=== PATIENT | male | born 1995 | race Caucasian/White ===

== ENCOUNTER 2016-04-05 06:38 | Emergency (ER) | payer OTHER ==
[2016-04-05] MEDS ORDERED: HALOPERIDOL LACTATE 5 MG/ML VIAL IM ONE ×2 (07:26→07:28)
[2016-04-05 07:45] LABS: BASOPHILS % 0.4 (0.0-1.5); EOSINOPHILS % 6.8 % (0.0-6.8); LYMPHOCYTES # 2.5 # k/uL (0.6-4.0); MEAN CORPUSCULAR HEMOGLOBIN 29.4 pg (28.0-34.0); MONOCYTES # 0.5 # k/uL (0.0-0.9); MONOCYTES % 6.5 % (0.0-11.0); NEUTROPHILS # 3.6 # k/uL (1.4-7.7)
[2016-04-05 07:48] LABS: APPEARANCE,URINE Clear (CLEAR); COLOR,URINE Yellow (YELLOW); OCCULT BLOOD,URINE Negative (NEGATIVE); PH URINE 5.5 (5.0 - 8.0)
[2016-04-05 07:53] LABS: AMPHETAMINE NEGATIVE ng/mL (<1000); BARBITURATES NEGATIVE ng/mL (<300); CANNABINOIDS NEGATIVE ng/mL (<50); COCAINE NEGATIVE ng/mL (<150); METHAMPHETAMINE NEGATIVE ng/mL (<1000); METHYLENEDIOXYMETHAMPHETAMINE NEGATIVE ng/mL (<500)
[2016-04-05 08:04] LABS: eGFR (African) > 60; eGFR (Non-African) > 60
--- NOTE | 2016-04-05 09:50 | ED Physician Documentation ---
Psychological Disorders - HISTORIAN Historian: patient - HPI Stated Complaint: "Anxiety" Chief Complaint: Psychological Disorder Additional Information: chronic problem, feels overwhelmed, not suicidal or homicidal Onset: hours (8) Duration: other (exacerbation of chronic problem) Intent: other (wants to get well) Severity: moderate Situational Problems: Yes Related To: spouse, work, recent Further Comments: no - Associated Symptoms Symptoms: agitated Suicidal: other (not suicidal) - ROS CONST: no problems NEURO/PSYCH: none EYES/ENT: none CVS/RESP: none GI/: denies: nausea, vomiting, abdominal pain, problems urinating MS/SKIN/LYMPH: denies: joint pain, leg swelling, rash, swollen glands, ankle swelling - PAST HX Psychiatric problems: bipolar disorder, schizophrenia, other (post traumatic stress disorder) DVT/PE Risk Factors: none Lung, Cardiac, DM: other (none) Surgical History: other (hand surgery) Immunizations: referred to PCP Allergies/Adverse Reactions: Allergies Allergy/AdvReac Type Severity Reaction Status Date / Time quetiapine fumarate Allergy Verified 04/05/16 06:43 [From Seroquel] Home Medications: Ambulatory Orders Medication Instructions Recorded Alprazolam [Alprazolam] 2 mg PO QID 04/05/16 - Social HX Smoking History: cigarettes, greater than 1 pack/day Marital Status: single Drug Use: none - Family HX Family HX: mental illness - VITAL SIGNS Vital Signs: Vital Signs Temp Pulse Resp BP Pulse Ox 72 16 112/52 99 04/05/16 09:52 04/05/16 09:52 04/05/16 09:52 04/05/16 09:52 - REVIEWED ASSESSMENTS Nursing Assessment Reviewed: Yes Vitals Reviewed: Yes Progress - Results/Orders Results/Orders: ekg, cxr, etoh, uds, ua, cbc, cmp ordered - Progress Progress: pt. given 10 mg Haldol im in er Critical Care Note - Critical Care Note Comments: 0 ED Results Lab/Radiology - Lab Results Lab Results: Lab Results 04/05/16 04/05/16 04/05/16 07:35 07:35 07:35 WBC RBC Hgb Hct MCV MCH MCHC RDW Plt Count Neut % (Auto) Lymph % (Auto) [place] % (Auto) Eos % (Auto) Baso % (Auto) Neut # Lymph # [place] # Eos # Baso # Reactive Lymphs % Reactive Lymphs # Sodium 140 mmol/L mmol/L (136-145) Potassium 4.1 mmol/L mmol/L (3.5-5.0) Chloride 109 mmol/L mmol/L (98-110) Carbon Dioxide 28 mmol/L mmol/L (20-32) BUN 14 mg/dL mg/dL (10-26) Creatinine 0.8 mg/dL mg/dL (0.4-1.5) Estimated Creat Clear 120 Est GFR ( Amer) > 60 (60 - ) Est GFR (Non-Af Amer) > 60 (60 - ) Glucose 88 mg/dL mg/dL (70-99) Calcium 9.5 mg/dL mg/dL (8.5-10.5) Total Bilirubin 0.2 mg/dL mg/dL (0.2-1.2) AST 16 U/L U/L (0-41) ALT 21 U/L U/L (0-45) Alkaline Phosphatase 76 U/L U/L (46-116) Total Protein 7.3 g/dL g/dL (6.0-8.5) Albumin 4.5 g/dL g/dL (3.0-5.5) Urine Color Yellow (YELLOW) Urine Appearance Clear (CLEAR) Urine pH 5.5 (5.0 - 8.0) Ur Specific [place] >=1.030 H (1.010-1.030) Urine Protein Negative mg/dL mg/dL (NEGATIVE) Urine Ketones Negative mg/dL mg/dL (NEGATIVE) Urine Occult Blood Negative (NEGATIVE) Urine Nitrite Negative (NEGATIVE) Urine Bilirubin Negative (NEGATIVE) Urine Urobilinogen 1.0 Eu Eu (0.2-1.0) Ur Leukocyte Esterase Negative (NEGATIVE) Urine Glucose Negative mg/dL mg/dL (NEGATIVE) Opiates Screen Negative (2000 ng/mL) Oxycodone Screen Negative ng/mL ng/mL (<100) Methadone Screen Negative ng/mL ng/mL (<300) POC Urine Barbiturates Negative ng/mL ng/mL (<300) Amphetamines Screen Negative ng/mL ng/mL (<1000) POC Ur Methamphetamine Negative ng/mL ng/mL (<1000) MDMA Negative ng/mL ng/mL (<500) Benzodiazepines Screen Non negative ng/mL H ng/mL (<300) Cocaine Screen Negative ng/mL ng/mL (<150) Marijuana (THC) Screen Negative ng/mL ng/mL (<50) Ethyl Alcohol < 10.0 MG/DL MG/DL (<10.0) 04/05/16 07:35 WBC 7.30 K/ul K/ul (4.00-12.00) RBC 4.79 M/ul M/ul (3.90-5.20) Hgb 14.1 g/dL g/dL (12.0-18.0) Hct 42.3 % % (37.0-53.0) MCV 88.4 fl fl (80.0-100.0) MCH 29.4 pg pg (28.0-34.0) MCHC 33.2 g/dL g/dL (30.0-36.0) RDW 12.5 % % (11.3-14.3) Plt Count 236 K/mm3 K/mm3 (130-400) Neut % (Auto) 49.1 % % (39.0-79.0) Lymph % (Auto) 34.9 % % (16.0-50.0) [place] % (Auto) 6.5 % % (0.0-11.0) Eos % (Auto) 6.8 % % (0.0-6.8) Baso % (Auto) 0.4 (0.0-1.5) Neut # 3.6 # k/uL # k/uL (1.4-7.7) Lymph # 2.5 # k/uL # k/uL (0.6-4.0) [place] # 0.5 # k/uL # k/uL (0.0-0.9) Eos # 0.5 # k/uL # k/uL (0.0-0.6) Baso # 0.0 # k/uL # k/uL (0.0-0.5) Reactive Lymphs % 2.3 % % (0.0-5.0) Reactive Lymphs # 0.2 # k/uL # k/uL (0.0-0.8) Sodium Potassium Chloride Carbon Dioxide BUN Creatinine Estimated Creat Clear Est GFR ( Amer) Est GFR (Non-Af Amer) Glucose Calcium Total Bilirubin AST ALT Alkaline Phosphatase Total Protein Albumin Urine Color Urine Appearance Urine pH Ur Specific [place] Urine Protein Urine Ketones Urine Occult Blood Urine Nitrite Urine Bilirubin Urine Urobilinogen Ur Leukocyte Esterase Urine Glucose Opiates Screen Oxycodone Screen Methadone Screen POC Urine Barbiturates Amphetamines Screen POC Ur Methamphetamine MDMA Benzodiazepines Screen Cocaine Screen Marijuana (THC) Screen Ethyl Alcohol - Radiology Radiology Impressions: cxr neg for pathology - Orders Orders: ED Orders Category Date Time Status CHEST 1 VIEW [RAD] Routine Exams 04/05/16 Ordered BENZODIAZEPINES, QUANT, URINE Routine Lab 04/05/16 07:45 Received CBC/PLATELET/DIFF Routine Lab 04/05/16 07:35 Completed CMP Routine Lab 04/05/16 07:35 Completed ETHANOL MEDICAL USE ONLY Routine Lab 04/05/16 07:35 Completed URINALYSIS Routine Lab 04/05/16 07:35 Completed Urine drug screen [DRUG SCREEN URINE MEDICAL ONLY] Lab 04/05/16 07:35 Completed Routine Haloperidol Lactate [Haldol] Med 04/05/16 07:26 Discontinued 10 mg IM NOW ONE Haloperidol Lactate [Haldol] Med 04/05/16 07:28 Discontinued 5 mg IM .STK-MED ONE EKG WITH COMPARISON Routine Ther 04/05/16 Ordered Psych Physical Exam - Physical Exam General Appearance: alert, moderate distress ENT: nml ENT inspection, pharynx nml, nml gag reflex Eyes: PERRL, EOM's intact Mental Status: no response (anxious) Suicide Attempts: denies Orientation: nml x3 Cranial Nerves: CN's intact as tested Sensory, Motor: nml motor response, nml sensory response, nml reflexes, nml gait Neck/Back: normal inspection, thyroid normal, supple Respiratory: no resp distress, chest non-tender, breath sounds normal CVS: reg rate & rhythm, heart sounds normal, equal pulses, no murmur, no gallop , PMI nml, no JVD, no friction rub Abdomen: non-tender, no organomegaly, nml bowel sounds Skin: warm/dry, normal color Extremities: non-tender, normal range of motion, no evidence of injury, no edema Discharge Clincal Impression: Anxiety Referrals: Primary Doctor,No [Primary Care Provider] - 2 Days Home Medications: Ambulatory Orders Alprazolam [Alprazolam] 2 mg PO QID 04/05/16 Comments: Discharged with prescription for Cymbalta 30 mg daily for 1 week then 60 mg daily with food. Disposition: 01 HOME, SELF-CARE Decision to Admit: NO Decision Time: 09:45
[2016-04-05 09:53] VITALS: BP 112/52
--- NOTE | 2016-04-05 11:23 | Diagnostic Imaging Report ---
[facility] [address] [facility].[address] [address] Report Submission Date: Apr 05, 2016 8:37:52 AM [employer]IC[employer]PR[employer]ICE DISPENSING Patient Study Name: MELINDA ZAPATA Date: Apr 05, 2016 7:40:26 AM [employer]ING Modality Type: CR Gender: M Description: CHEST : 89 Institution: [facility] Physician MIKEL DAMON - ER Chest -one view CLINICAL HISTORY: Anxiety. FINDINGS: Examination of the chest single portable AP view 04/05/2016 0740 hr with no prior film for comparison demonstrates the lungs to be clear. Cardiovascular and mediastinal silhouettes are within normal limits. Bony thorax is intact. IMPRESSION: Negative chest. Electronically signed on Apr 05, 2016 8:37:52 AM [employer] DISP[employer]ING by: Saeid LOPEZ
== END 2016-04-05 09:52 | disposition home or self-care (01) ==
LOC: ED 06:38
DX: F41.9 Anxiety disorder, unspecified (principal)
CPT/HCPCS: 36415; 71010; 80053; 80320; 80377; 81002; 85025; 93005; J1630; 96372; 99283; G0480; G0481